=== PATIENT | male | born 1980 | race Caucasian/White ===

== ENCOUNTER 2019-08-26 14:18 | Emergency (ER) | payer OTHER ==
[~2019-08-26] VITALS: Ht 167.6 cm; Wt 77.1 kg
[2019-08-26 14:25] VITALS: BP 131/99
--- NOTE | 2019-08-26 14:48 | NUR ---
38 Y/M BIB SELF FOR POSSIBLY BEING DRUGED BY HIS GIRLFRIEND. ON SUNDAY PATIENT LEFT DRINKS UNATTENDED WHILE WITH HIS GIRLFRIEND AND EVER SINCE HAS BEEN "TRIPPED OUT" COMPLAINING OF NAUSEA, VOMITING, NON RADIATING CHEST PAIN 10/10, SOB, BODY NUMBNESS, ANXIETY, AND INABILITY TO SLEEP. PATIENT REPORTS STOPPING METHADONE ON SUNDAY. LUNGS CLEAR BILATERALLY, BOWEL SOUND PRESENT IN ALL FOUR QUADRANTS. HX OF INTESTINAL BLOOD CLOT X 2 YEARS AGO, BIPOLAR, ADD, ADHD DENIES ANY DRUG ALLERGIES OCCASIONALLY TAKES XANAX (FROM UNKNOWN SOURCE)
[2019-08-26] MEDS ORDERED: NACL 0.9% 1,000 ML IV SCH (14:52)
[2019-08-26] MEDS ORDERED: NACL 0.9% 1,000 ML IV ONE (14:52)
[2019-08-26] MEDS ORDERED: PROMETHAZINE 25 MG/ML VIAL IM ONE (14:55)
[2019-08-26] MEDS ORDERED: diphenhydrAMINE 50 MG/ML VIAL IVP ONE (14:55)
[2019-08-26] MEDS ORDERED: HALOPERIDOL IM 5 MG/ML VIAL IM ONE (14:55)
--- NOTE | 2019-08-26 14:59 | NUR ---
LAB AT BEDSIDE
[2019-08-26 15:15] LABS: BASOPHILS # (AUTO) 0.1 K/uL (0.00-0.22); BASOPHILS % (AUTO) 0.4 % (0.0-2.0); EOSINOPHILS # (AUTO) 0.1 K/uL (0-0.4); EOSINOPHILS % (AUTO) 0.6 % (0.0-4.0); HEMATOCRIT 48.7 % (36-52); HEMOGLOBIN 16.2 g/dL (12.0-18.0); LYMPHOCYTES # (AUTO) 2.7 K/uL (2.0-11.5); LYMPHOCYTES % (AUTO) 21.1 % (20.5-51.1); MEAN CORPUSCULAR HEMOGLOBIN 30 pg (27-31); MEAN CORPUSCULAR HGB CONC 33 g/dL (33-37); MEAN CORPUSCULAR VOLUME 88.8 fL (80-94); MONOCYTES # (AUTO) 1.1 K/uL (0.8-1.0); MONOCYTES % (AUTO) 8.3 % (1.7-9.3); NEUTROPHILS # (AUTO) 8.9 K/uL (1.8-7.7); NEUTROPHILS % (AUTO) 69.6 % (42.2-75.2); PLATELET COUNT (AUTO) 382 K/uL (140-450); RED BLOOD CELL COUNT(AUTO) 5.49 MIL/uL (4.20-6.10); WHITE BLOOD COUNT (AUTO) 12.7 K/uL (4.8-10.8)
[2019-08-26 15:17] LABS: APPEARANCE,URINE CLEAR (CLEAR); BILIRUBIN,URINE 2+ (NEGATIVE); BLOOD, URINE NEGATIVE (NEGATIVE); LEUKOCYTE ESTERASE ,URINE TRACE (NEGATIVE); NITRITE, URINE NEGATIVE (NEGATIVE); PH,URINE 6.5 (5.0-9.0); UGLUCOSE NEGATIVE (NEGATIVE)
[2019-08-26 15:21] LABS: COLOR,URINE AMBER (YELLOW)
[2019-08-26 15:31] LABS: RBC,URINE 0-5 /HPF (0-5)
[2019-08-26 15:39] LABS: BARBITURATE, URINE NEG. ng/ml (NEG <=200); BENZODIAZEPINE, URINE NEG. ng/mL (NEG <=200); CANNABINOID, URINE POS. ng/mL (NEG <=50); COCAINE, URINE NEG. ng/mL (NEG <=300); OPIATE, URINE NEG. ng/mL (NEG <=2000); PHENCYCLIDINE SCREEN,URINE NEG. ng/mL (NEG <=25)
--- NOTE | 2019-08-26 15:45 | NUR ---
PATIENT TO CT VIA GURNEY.
[2019-08-26 15:53] LABS: ALBUMIN 4.6 g/dL (3.4-5.0); CARBON DIOXIDE 25.6 mmol/L (21-32); CREATININE 1.1 mg/dL (0.7-1.3); TOTAL BILIRUBIN 0.5 mg/dL (0.0-1.0)
[2019-08-26 15:56] LABS: ANION GAP 19.6 (8-16); POTASSIUM 4.2 mmol/L (3.5-5.1)
--- NOTE | 2019-08-26 16:14 | NUR ---
PT STATES HE WANTS TO GO HOME, DOES NOT WANT TREATMENT. DR GONZALEZ MADE AWARE
[2019-08-26 16:27] VITALS: BP 131/99
--- NOTE | 2019-08-26 16:29 | NUR ---
Note undone in EDM - 08/26/[address] [facility] Patient discharged with v/s stable. Written and verbal after care instructions given and explained. Patient alert, oriented and verbalized understanding of instructions. Ambulatory with steady gait. All questions addressed prior to discharge. ID band removed. Patient advised to follow up with PMD. Rx of VISTARIL 25MG given. Patient educated on indication of medication including possible reaction and side effects. Opportunity to ask questions provided and answered.
--- NOTE | 2019-08-26 16:38 | NUR ---
PT LEFT WITHOUT DISCHARGE INSTRUCTIONS AND PRESCRIPTION. D/C PAPERWORK NOT SIGNED BY PT.
== END 2019-08-26 16:30 | disposition home or self-care (01) ==
LOC: MED 14:18
DX: R10.84 Generalized abdominal pain (principal); R11.2 Nausea with vomiting, unspecified; F12.10 Cannabis abuse, uncomplicated; F15.10 Other stimulant abuse, uncomplicated; F31.9 Bipolar disorder, unspecified; Z90.49 Acquired absence of other specified parts of digestive tract
CPT/HCPCS: 36415; 74176; 80053; 80305; 81001; 82150; 83690; 85025; 87086; 96361; 96372; 96374; 99284; G0482; J1200; J1630; J2550; J7030

== ENCOUNTER 2019-09-28 07:06 | Emergency (ER) | payer OTHER ==
[~2019-09-28] VITALS: Ht 170.2 cm; Wt 81.6 kg
[2019-09-28 07:08] VITALS: BP 133/77
--- NOTE | 2019-09-28 07:08 | NUR ---
to bed # 06 ambulatory
--- NOTE | 2019-09-28 07:34 | NUR ---
DR. HOLDEN AT BEDSIDE EXAMINING PT.
[2019-09-28] MEDS ORDERED: LORazepam 1 MG TAB PO ONE (07:45)
[2019-09-28] MEDS ORDERED: KETOROLAC 60 MG/2 ML VIAL IM ONE (07:45)
--- NOTE | 2019-09-28 08:00 | NUR ---
38 Y/M PRESENTS TO ED FOR ANXIETY X 2 DAY, AND INABILITY TO SLEEP. PT ALSO REPORTS CHRONIC LOW BACK, SHARP PAIN 10/10, NONRADIATING. NO BRUISING ON BACK. PT ALSO SEEKING HELP TO WEAN FROM METHADONE. PT REPORTS WEANING FROM [facility] AND REPORTS HAS NOT HAD ANY X 4 DAYS AGO. RR EVEN AND UNLABORED. PT DENIES CIG USE OR VAPING. PT APPEARS ANXIOUS AND SITTING IN BED. HX- DEPRESSION, ANXIETY NKDA
--- NOTE | 2019-09-28 08:11 | NUR ---
Patient discharged with v/s stable. Written and verbal after care instructions given and explained. Patient alert, oriented and verbalized understanding of instructions. Ambulatory with steady gait. All questions addressed prior to discharge. ID band removed. Patient advised to follow up with PMD. Rx of ATARAX given. Patient educated on indication of medication including possible reaction and side effects. Opportunity to ask questions provided and answered. PTS COUSIN WILL BE DRIVING HIM HOME, INSTRUCTED NOT TO DRIVE AFTER ATIVAN, PT VERBALIZED UNDERSTANDING.
[2019-09-28 08:12] VITALS: BP 133/77
== END 2019-09-28 08:11 | disposition home or self-care (01) ==
LOC: MED 07:06
DX: G89.29 Other chronic pain (principal); M54.9 Dorsalgia, unspecified; F41.9 Anxiety disorder, unspecified; F17.200 Nicotine dependence, unspecified, uncomplicated; F11.90 Opioid use, unspecified, uncomplicated; F12.90 Cannabis use, unspecified, uncomplicated; Z98.890 Other specified postprocedural states
CPT/HCPCS: 96372; 99283; J1885

== ENCOUNTER 2019-10-02 20:38 | Emergency (ER) | payer OTHER ==
[~2019-10-02] VITALS: Ht 170.2 cm; Wt 77.1 kg
[2019-10-02 20:40] VITALS: BP 110/77
--- NOTE | 2019-10-02 20:40 | NUR ---
TO BED # 08 AMBULATORY
--- NOTE | 2019-10-02 20:42 | NUR ---
38 YO MALE COMES TO ED FOR C/O LOW BACK PAIN X2 DAYS. PT STATES HE FELL DOWN STAIRS ON SUNDAY. PT ABLE TO BEAR WEIGHT ON BOTH LEGS SLOWLY. PT DENIES NUMBNESS TINGLING NOTED. SKIN INTACT, SENSATION INTACT. GURNEY LOCKED IN LOWEST POSITION. HOB GREATER THAN 30 DEGREES FOR COMFORT. HX: ANXIETY, L6 SURGERY MARIJUANA USE RX: NONE AX: NKA
[2019-10-02] MEDS ORDERED: KETOROLAC 60 MG/2 ML VIAL IM ONE (21:00)
--- NOTE | 2019-10-02 21:22 | NUR ---
Dr. Allan examining patient.
[2019-10-02] MEDS ORDERED: MORPHINE SULFATE 4 MG/ML SYR IM ONE (21:25)
--- NOTE | 2019-10-02 21:32 | NUR ---
PT TAKEN TO RAD
[2019-10-02 22:47] VITALS: BP 119/81
== END 2019-10-02 22:48 | disposition home or self-care (01) ==
LOC: MED 20:38 → MTU 21:40 → UNDOADMIN 21:40 → MED 22:48
DX: M54.5 Low back pain (principal); F12.90 Cannabis use, unspecified, uncomplicated; F41.9 Anxiety disorder, unspecified; Z98.890 Other specified postprocedural states
CPT/HCPCS: 72100; 96372; 99284; J1885; J2270

== ENCOUNTER 2020-06-01 16:17 | Emergency (ER) | payer OTHER, MEDICAID ==
[~2020-06-01] VITALS: Ht 167.6 cm; Wt 84.4 kg
[2020-06-01 16:24] VITALS: BP 141/71
[2020-06-01] MEDS ORDERED: LORazepam 1 MG TAB PO ONE (16:55)
[2020-06-01] MEDS ORDERED: KETOROLAC 30 MG/ML VIAL IM SCH (17:00)
[2020-06-01 17:49] VITALS: BP 143/85
== END 2020-06-01 17:49 | disposition home or self-care (01) ==
LOC: MED 16:17
DX: F41.9 Anxiety disorder, unspecified (principal); M54.5 Low back pain; R03.0 Elevated blood-pressure reading, without diagnosis of hypertension; F12.90 Cannabis use, unspecified, uncomplicated
CPT/HCPCS: 96372; 99283; J1885

== ENCOUNTER 2024-04-24 12:42 | Emergency (ER) | payer MEDICAID, OTHER ==
[~2024-04-24] VITALS: Ht 170.2 cm; Wt 88.9 kg
[2024-04-24 13:01] VITALS: BP 134/94; PULSE 100; RESP 18; TEMP 97.4; O2SAT 99
[2024-04-24] MEDS ORDERED: METH-1681 PO (14:18)
[2024-04-24] MEDS: HYDROcodone/APAP 5/325 MG 1 TAB TAB PO ONE (14:28)
== END 2024-04-24 14:39 | disposition home or self-care (01) ==
LOC: MED 12:42
DX: G89.29 Other chronic pain (principal); M54.50 Low back pain, unspecified; R03.0 Elevated blood-pressure reading, without diagnosis of hypertension; F12.90 Cannabis use, unspecified, uncomplicated; Z79.899 Other long term (current) drug therapy
CPT/HCPCS: 99283

== ENCOUNTER 2024-05-20 13:40 | Emergency (ER) | payer SELFPAY ==
[~2024-05-20] VITALS: Ht 170.2 cm; Wt 95.8 kg
[~2024-05-20 13:40] MED LIST: METH-1681 PO
[2024-05-20 13:46] VITALS: BP 153/103; PULSE 103; RESP 18; TEMP 97.7; O2SAT 100
[2024-05-20] MEDS: ONDANSETRON 4 MG ODT PO ONE (14:42)
[2024-05-20] MEDS: MORPHINE SULFATE 4 MG/ML SYR IM ONE (14:42)
[2024-05-20 14:57] VITALS: BP 124/62; PULSE 72; RESP 18; TEMP 98.4; O2SAT 9
[2024-05-20] MEDS ORDERED: NAPR-337 PO (15:48)
== END 2024-05-20 16:13 | disposition home or self-care (01) ==
LOC: MED 13:40
DX: G89.29 Other chronic pain (principal); M54.50 Low back pain, unspecified; M54.2 Cervicalgia; F12.90 Cannabis use, unspecified, uncomplicated; F17.200 Nicotine dependence, unspecified, uncomplicated; Z98.890 Other specified postprocedural states; Z79.899 Other long term (current) drug therapy
CPT/HCPCS: 96372; 99283; J2270; Q0162

== ENCOUNTER 2024-06-01 17:40 | Emergency (ER) | payer MEDICAID, OTHER ==
[~2024-06-01] VITALS: Ht 170.2 cm; Wt 86.2 kg
[~2024-06-01 17:40] MED LIST changes: +NAPR-337 PO
[2024-06-01 17:51] VITALS: BP 153/113; PULSE 126; RESP 20; TEMP 97.9; O2SAT 96
[2024-06-01 18:14] VITALS: BP 147/109; TEMP 97.9
[2024-06-01 18:15] VITALS: O2SAT 98
[2024-06-01 19:16] LABS: BASOPHILS # (AUTO) 0.1 K/uL (0.00-0.22); BASOPHILS % (AUTO) 0.4 % (0.0-2.0); EOSINOPHILS # (AUTO) 0.3 K/uL (0-0.4); HEMATOCRIT 46.9 % (36-52); HEMOGLOBIN 15.3 g/dL (12.0-18.0); LYMPHOCYTES # (AUTO) 2.1 K/uL (2.0-11.5); LYMPHOCYTES % (AUTO) 12.4 % (20.5-51.1); MEAN CORPUSCULAR HEMOGLOBIN 29 pg (27-31); MEAN CORPUSCULAR HGB CONC 33 g/dL (33-37); MEAN CORPUSCULAR VOLUME 89.1 fL (80-94); MONOCYTES # (AUTO) 1.5 K/uL (0.8-1.0); MONOCYTES % (AUTO) 8.9 % (1.7-9.3); NEUTROPHILS # (AUTO) 12.9 K/uL (1.8-7.7); NEUTROPHILS % (AUTO) 76.3 % (42.2-75.2); PLATELET COUNT (AUTO) 367 K/uL (140-450); RED BLOOD CELL COUNT(AUTO) 5.27 MIL/uL (4.20-6.10); RED CELL DISTRIBUTION WIDTH 14.2 % (11.6-13.7); WHITE BLOOD COUNT (AUTO) 16.9 K/uL (4.8-10.8)
[2024-06-01 19:34] LABS: ANION GAP 12.6 (8-16); CALCIUM 8.9 mg/dL (8.5-10.1); CARBON DIOXIDE 30.4 mmol/L (21-32); CREATININE 1.2 mg/dL (0.6-1.3)
[2024-06-01 19:41] LABS: ALCOHOL, BLOOD < 3 mg/dL (<10)
[2024-06-01 19:44] LABS: ACETAMINOPHEN < 0.5 ug/ml (10-30); SALICYLATE < 2.8 mg/dL (2.8-20.0)
[2024-06-01] MEDS: ACETAMINOPHEN EXTRA STRENGTH 500 MG TAB PO ONE (19:44)
[2024-06-01] MEDS: LIDOCAINE 5% 1 EA PATCH TP ONE (19:46)
[2024-06-01] MEDS: KETOROLAC 30 MG/ML VIAL IM ONE (19:51)
[2024-06-01 19:59] VITALS: PULSE 106; RESP 13
[2024-06-01 20:20] LABS: AMPHETAMINE, URINE NEGATIVE ng/ml (NEG <=1000); BARBITURATE, URINE NEGATIVE ng/ml (NEG <=200); BENZODIAZEPINE, URINE NEGATIVE ng/mL (NEG <=200)
[2024-06-01 20:21] LABS: CANNABINOID, URINE POSITIVE ng/mL (NEG <=50); COCAINE, URINE NEGATIVE ng/mL (NEG <=300); OPIATE, URINE NEGATIVE ng/mL (NEG <=2000); PHENCYCLIDINE SCREEN,URINE NEGATIVE ng/mL (NEG <=25)
[2024-06-01] MEDS: MORPHINE SULFATE 4 MG/ML SYR IM ONE (21:26)
== END 2024-06-01 21:27 ==
LOC: MED 17:40
DX: S39.012A Strain of muscle, fascia and tendon of lower back, initial encounter (principal); S16.1XXA Strain of muscle, fascia and tendon at neck level, initial encounter; S09.90XA Unspecified injury of head, initial encounter; R03.0 Elevated blood-pressure reading, without diagnosis of hypertension; F31.9 Bipolar disorder, unspecified; F20.9 Schizophrenia, unspecified; Z86.69 Personal history of other diseases of the nervous system and sense organs; Z79.899 Other long term (current) drug therapy; V89.2XXA Person injured in unspecified motor-vehicle accident, traffic, initial encounter; Y93.89 Activity, other specified; Y92.410 Unspecified street and highway as the place of occurrence of the external cause; Y99.8 Other external cause status
CPT/HCPCS: 36415; 70450; 72125; 72131; 80048; 80305; 85025; 93005; 96372; 99285; G0480; G0482; J1885; J2270